=== PATIENT | male | born 1965 | race Caucasian/White ===

== ENCOUNTER → 2021-06-04 | Day surgery (SDC) | payer BC, OTHER ==
[~2021-06-04] MED LIST: 0.9 % SODIUM CHLORIDE 10 ML VIAL. ONE; BUPIVACAINE MPF 0.25% 10 ML VIAL. ONE; DEXAMETHASONE SOD PHOS 10 MG/ML VIAL. ONE; IOHEXOL 300 MG/ML 50 ML VIAL. ONE; LIDOCAINE 1% PF 30 ML VIAL. ONE
[2021-06-04 10:41] VITALS: BP 111/73
== END | disposition home or self-care (01) ==
LOC: SURG 09:55
PROVIDERS: ATTEND Anesthesiology
DX: M54.16 Radiculopathy, lumbar region (principal); F32.9 Major depressive disorder, single episode, unspecified; E11.9 Type 2 diabetes mellitus without complications; E78.5 Hyperlipidemia, unspecified; M51.36 Other intervertebral disc degeneration, lumbar region; M79.10 Myalgia, unspecified site; Z79.899 Other long term (current) drug therapy; Z88.8 Allergy status to other drugs, medicaments and biological substances
CPT/HCPCS: 64483; 64484; A4209; A4657; A4930; J1100; J3490; Q9967

== ENCOUNTER → 2021-07-14 | Outpatient (CLI) | payer OTHER ==
[2021-06-04 10:41] VITALS: BP 111/73
--- NOTE | 2021-07-14 11:32 | RAD ---
EXAM: Abdomen, single view. HISTORY: Lithotripsy. COMPARISON: None. FINDINGS: Frontal views of the abdomen are obtained. There is a suspected 4 mm stone overlying the lo wer pole the left kidney. Evaluation for smaller bilateral renal stones is limited due to overlying b owel. There is a nonobstructive bowel gas pattern. There is a right pelvic phlebolith. IMPRESSION: Suspected 4 mm left renal stone. Evaluation for smaller stones is limited due to overlyin g bowel. Electronically signed by: Jeny Ly MD (07/14/2021 11:30 AM) [id number]
== END ==
LOC: RAD 11:15
PROVIDERS: ATTEND Specialist
DX: N20.0 Calculus of kidney (principal); I87.8 Other specified disorders of veins
CPT/HCPCS: 74018

== ENCOUNTER → 2021-08-05 | Day surgery (SDC) | payer OTHER ==
[~2021-08-05] MED LIST changes: -0.9 % SODIUM CHLORIDE 10 ML VIAL. ONE; +GABAPENTIN; +MULT-245 PO; +SERTRALINE; +WELLBUTRIN
[2021-08-05 10:38] VITALS: BP 129/86
== END | disposition home or self-care (01) ==
LOC: SURG 09:55
PROVIDERS: ATTEND Anesthesiology
DX: M54.16 Radiculopathy, lumbar region (principal); F32.9 Major depressive disorder, single episode, unspecified; E11.9 Type 2 diabetes mellitus without complications; E78.5 Hyperlipidemia, unspecified; M51.36 Other intervertebral disc degeneration, lumbar region; M79.10 Myalgia, unspecified site; I10 Essential (primary) hypertension; E66.9 Obesity, unspecified; Z88.8 Allergy status to other drugs, medicaments and biological substances; Z79.899 Other long term (current) drug therapy; Z98.84 Bariatric surgery status
CPT/HCPCS: 64483; 64484; A4209; A4657; A4930; J1100; J3490; Q9967